=== PATIENT | female | born 1975 | race Caucasian/White ===

== ENCOUNTER 2025-01-11 14:42 | Emergency (ER) | payer OTHER ==
[2025-01-11 14:56] VITALS: TEMP 98
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
[2025-01-11] MEDS: ACETAMINOPHEN TAB 325 MG TAB PO STA (15:20)
[2025-01-11 15:37] LABS: Amorphous Sediment,Urine Rare /hpf; Appearance,Urine Clear (Clear); Bilirubin,Urine Negative (Negative); Blood,Urine Negative (Negative); Color,Urine Yellow; Glucose,Urine (UA) Negative (Negative); Ketones,Urine Negative (Negative); Leukocyte Esterase,Urine Trace (Negative); Mucus,Urine Few /hpf; Nitrite,Urine Negative (Negative); PH, Urine 7.5 (5.0-8.0); Protein,Urine 1+ (Negative); Specific Gravity,Urine 1.034 (1.001-1.035); Squamous Epithelial Cell,Urine 6 /hpf (0-4); WBC,Urine 1 /hpf (0-5)
[2025-01-11] MEDS: cefTRIAXone 1,000 MG VIAL (IM USE) IM STA (15:58)
[2025-01-11] MEDS: DOXYCYCLINE 100 MG TABLET PO ONE (15:58)
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
[2025-01-11 16:37] VITALS: RESP 18
[2025-01-11 16:55] VITALS: BP 131/86; PULSE 80
== END 2025-01-11 16:55 | disposition home or self-care (01) ==
LOC: EC 14:42
DX: S06.0XAA Concussion with loss of consciousness status unknown, initial encounter (principal); R40.2410 Glasgow coma scale score 13-15, unspecified time; Y04.8XXA Assault by other bodily force, initial encounter
CPT/HCPCS: 99285 ×2; 96372 ×2; 81001; 87491; 87591; 72125; 70450; J0696